=== PATIENT | male | born 1995 | race Caucasian/White ===

== ENCOUNTER 2017-08-17 08:08 | Emergency (ER) | payer MEDICAID ==
--- NOTE | 2017-08-17 08:59 | EDPHY ---
H & P Time Seen by Provider: 08/17/17 08:39 HPI/ROS: CHIEF COMPLAINT: Left-sided back pain HISTORY OF PRESENT ILLNESS: 21-year-old male presents with left-sided back pain. Onset of a moist cough, sore throat, runny nose and subjective fever 2 weeks ago. The cough has persisted, though is quite mild and he does not feel ill. Yesterday evening, he bent over and had sudden onset of left-sided mid back pain. The pain is moderate and increases with movement and deep inspiration. No shortness of breath. No prior history of pneumonia or thromboembolism. REVIEW OF SYSTEMS: Constitutional: No fever, no chills Eyes: No visual changes ENT: No sore throat Gastrointestinal: No nausea, no vomiting, no abdominal pain Genitourinary: no dysuria Musculoskeletal: No myalgias Skin: No rash Neurological: No headache, no weakness Psychiatric: No depression Past Medical/Surgical History: Denies Social History: Moderate alcohol use Smokes marijuana No other drug use Student at [employer] Smoking Status: Never smoked Physical Exam: General Appearance: Alert, pleasant Eyes: Pupils equal and round, no conjunctival injection ENT, Mouth: Mucous membranes moist Neck: Normal inspection Respiratory: Normal respiratory rate, lungs are clear to auscultation Cardiovascular: Regular rate and rhythm Gastrointestinal: Abdomen is soft and nontender Back: Normal inspection, no tenderness Neurological: A&O, nonfocal, normal gait Skin: Warm and dry Extremities: Normal inspection Psychiatric: Mood and affect normal Constitutional: Initial Vital Signs Temperature (C) 36.7 C 08/17/17 08:10 Heart Rate 85 08/17/17 08:10 Respiratory Rate 18 08/17/17 08:10 Blood Pressure 137/78 H 08/17/17 08:10 O2 Sat (%) 96 08/17/17 08:10 O2 Delivery Mode Room Air Allergies/Adverse Reactions: prednisone Allergy (Intermediate, Verified 08/17/17 08:19) swells Home Medications: Medication Instructions Recorded Azithromycin [Zithromax] 250 mg PO DAILY #6 tab 08/17/17 Medical Decision Making - Diagnostics Imaging Results: Chest X-Ray 08/17/17 08:29 Impression: Left lower lobe superior segment infiltrate representing pneumonia versus pulmonary infarct. Findings and recommendations discussed with Emergency Department physician, Dr. Ira Luke at 0902 hours on August 17, 2017. Final report concurs with initial preliminary interpretation. ED Course/Re-evaluation: This patient presents with ongoing cough and moderate left-sided back pain. Most likely secondary to pneumonia, though given the wedge-shaped appearance of this infiltrate and pleuritic pain, will order CT pulmonary angiogram to rule out pulmonary embolism. Toradol [address] pulmonary angiogram reveals left lower lobe pneumonia, no evidence of pulmonary embolism/infarct. Results discussed with the patient. Prescription for Z-Ryan given for pneumonia. Will follow up with PCP. Ibuprofen for pain. Differential Diagnosis: Differential diagnosis includes though it is not limited to pneumonia, pneumothorax, pulmonary embolism, aortic dissection, pericarditis, acute coronary syndrome. - Data Points Laboratory Results: Laboratory Results 08/17/17 09:16 08/17/17 09:16 Medications Given: Discontinued Medications Ketorolac Tromethamine (Toradol) 30 mg IVP EDNOW ONE Stop: 08/17/17 09:03 Last Admin: 08/17/17 09:18 Dose: 30 mg Departure - Departure Disposition: Home, Routine, Self-Care Clinical Impression: Pneumonia Qualifiers: Pneumonia type: due to unspecified organism Laterality: left Lung location: lower lobe of lung Qualified Code(s): J18.1 - Lobar pneumonia, unspecified organism Condition: Good Instructions: Community Acquired Pneumonia (ED) Additional Instructions: Ibuprofen 600 mg 3 times daily while the pain persists. You may also take Tylenol 650 mg every 4 hr as needed for pain. Referrals: IRINA BRAY [Other] - 2-3 days, call for appt. Stand Alone Forms: Work Excuse Prescriptions: Azithromycin [Zithromax] 250 mg PO DAILY #6 tab
[2017-08-17] MEDS ORDERED: KETOROLAC 15 MG/1 ML SDV IVP ONE (09:02)
[2017-08-17 09:25] LABS: PLATELET COUNT 215 10^3/uL (150-400)
[2017-08-17 09:35] LABS: INR 1.1 (0.83-1.16); PROTIME(PATIENT) 14.4 SEC (12.0-15.0)
[2017-08-17] MEDS ORDERED: IOPAMIDOL (ISOVUE 370) 100 ML BTL IV ONE (09:40)
[2017-08-17 10:28] VITALS: BP 130/78; PULSE 69; RESP 16; TEMP 99; O2SAT 94
== END 2017-08-17 10:22 | disposition home or self-care (01) ==
DX: J18.1 Lobar pneumonia, unspecified organism (principal)
CPT/HCPCS: 82947-QW; 96374; J1885; Q9967